=== PATIENT | male | born 1990 | race Caucasian/White ===

== ENCOUNTER 2020-10-28 19:11 | Observation (INO) | payer OTHER ==
[~2020-10-28] VITALS: Ht 175.2 cm; Wt 117.6 kg
[~2020-10-28 19:11] MED LIST: CIPROFLOXACIN500 MG PO; IBU800 MG PO; KEFLEX500 MG PO; TRAMADOL HCL50 MG PO
[2020-10-28 19:14] VITALS: BP 159/96
[2020-10-28 20:05] LABS: BASO % 0.2 % (0.0-1.0); EOS % 0.1 % (1.0-4.0); HEMATOCRIT 44.8 % (42.0-52.0); LYMPH # 1.1 10*3/uL (1.3-4.4); LYMPH % 5.5 % (27.0-41.0); MEAN CELL VOLUME 89.4 fl (80.0-94.0); MEAN CORPUSCULAR HGB 29.7 pg (27.0-31.0); MEAN CORPUSCULAR HGB CONC 33.3 g/dl (33.0-37.0); MONO # 0.9 10*3/uL (0.1-1.0); MONO % 4.8 % (3.0-9.0); PLATELET COUNT AUTOMATED 331 10*3/uL (130-400); RED BLOOD COUNT 5.01 10*6/uL (4.50-5.90)
[2020-10-28 20:13] VITALS: BP 139/96
[2020-10-28 20:23] LABS: ALBUMIN 4.3 gm/dl (3.1-4.5); ALKALINE PHOSPHATASE 71 U/L (45-117); BUN 23 mg/dl (7-24); CHLORIDE 110 mmol/L (98-107); CREATININE 1.19 mg/dL (0.70-1.30); LIPASE 131 U/L (73-393); POTASSIUM 3.7 mmol/L (3.5-5.1); SGOT/AST 24 IU/L (3-35); SGPT/ALT 32 U/L (12-78); SODIUM 141 mmol/L (136-145)
[2020-10-28 21:15] VITALS: BP 139/78
[2020-10-28 22:53] VITALS: BP 136/79
[2020-10-29 01:00] VITALS: BP 131/72
[2020-10-29 06:20] LABS: BUN 15 mg/dl (7-24); CHLORIDE 112 mmol/L (98-107); CHOLESTEROL 94 mg/dL (<200); CREATININE 0.79 mg/dL (0.70-1.30); HDL CHOLESTEROL 32 mg/dl (40-60); LDL CHOLESTEROL 51 mg/dL (9-159); POTASSIUM 3.9 mmol/L (3.5-5.1); SODIUM 140 mmol/L (136-145); TRIGLYCERIDES 55 mg/dl (<150); VLDL CHOLESTEROL 11 mg/dL (6-40)
[2020-10-29 06:21] LABS: ACT PARTIAL THROMBO TIME 25.8 SECONDS (20.0-32.1); INTERNATIONAL NORM RATIO 1.1 (2.0-3.5)
[2020-10-29 06:28] LABS: BASO % 0.2 % (0.0-1.0); EOS % 0.1 % (1.0-4.0); FREE T4 0.95 ng/dl (0.76-1.46); HEMATOCRIT 40.2 % (42.0-52.0); LYMPH # 2.2 10*3/uL (1.3-4.4); LYMPH % 15.9 % (27.0-41.0); MEAN CELL VOLUME 89.7 fl (80.0-94.0); MEAN CORPUSCULAR HGB 29.7 pg (27.0-31.0); MEAN CORPUSCULAR HGB CONC 33.1 g/dl (33.0-37.0); MEAN PLATELET VOLUME 11.4 fl (9.6-12.3); MONO % 7.4 % (3.0-9.0); NEUT # 10.7 10*3/uL (2.3-7.9); NEUT % 76.1 % (47.0-73.0); PLATELET COUNT AUTOMATED 307 10*3/uL (130-400); RED BLOOD COUNT 4.48 10*6/uL (4.50-5.90)
[2020-10-29 08:00] VITALS: BP 126/76
[2020-10-29] MEDS ORDERED: AUGMENTIN 875875 MG PO (09:54)
[2020-10-29] MEDS ORDERED: HYDROCODONE-AC1 EAC1 PO (09:54)
[2020-10-29] MEDS ORDERED: Motrin,Rufen800 MG PO (09:54)
[2020-10-29 12:00] VITALS: BP 125/72
== END 2020-10-29 12:54 | disposition home or self-care (01) ==
LOC: ED 19:11 → EDHOLD 10-29 00:02 → 5E 10-29 00:48
PROVIDERS: Emergency Medicine; Hospitalist; ADMIT Internal Medicine; ATTEND Internal Medicine
DX: S02.82XA Fracture of other specified skull and facial bones, left side, initial encounter for closed fracture (principal); S02.2XXA Fracture of nasal bones, initial encounter for closed fracture; S09.90XA Unspecified injury of head, initial encounter; E87.2 Acidosis; D72.829 Elevated white blood cell count, unspecified; T07.XXXA Unspecified multiple injuries, initial encounter; Z88.1 Allergy status to other antibiotic agents; Z88.6 Allergy status to analgesic agent; Y04.0XXA Assault by unarmed brawl or fight, initial encounter; Y93.89 Activity, other specified; Y92.89 Other specified places as the place of occurrence of the external cause; Y99.8 Other external cause status